=== PATIENT | male | born 1985 | race Caucasian/White ===

== ENCOUNTER 2022-10-18 01:12 | Emergency (ER) | payer SELFPAY ==
[~2022-10-18] VITALS: Ht 175.3 cm; Wt 72.6 kg
--- NOTE | 2022-10-18 01:14 | NUR ---
PT [facility] ER BED 6, ACCOMPANIED BY KATHRIN CAMPBELL
[2022-10-18 01:15] VITALS: BP 132/68
--- NOTE | 2022-10-18 02:01 | NUR ---
Dr. Cihng examining patient.
[2022-10-18] MEDS ORDERED: NACL 0.9% 1,000 ML IV ONE (02:05)
[2022-10-18 02:23] LABS: BASOPHILS # (AUTO) 0.1 K/uL (0.00-0.22); BASOPHILS % (AUTO) 0.8 % (0.0-2.0); EOSINOPHILS # (AUTO) 0.2 K/uL (0-0.4); EOSINOPHILS % (AUTO) 1.4 % (0.0-4.0); HEMATOCRIT 46.4 % (36-52); HEMOGLOBIN 15.6 g/dL (12.0-18.0); LYMPHOCYTES # (AUTO) 1.2 K/uL (2.0-11.5); LYMPHOCYTES % (AUTO) 10.1 % (20.5-51.1); MEAN CORPUSCULAR HEMOGLOBIN 32 pg (27-31); MEAN CORPUSCULAR HGB CONC 34 g/dL (33-37); MONOCYTES # (AUTO) 0.9 K/uL (0.8-1.0); MONOCYTES % (AUTO) 8.1 % (1.7-9.3); NEUTROPHILS # (AUTO) 9.3 K/uL (1.8-7.7); NEUTROPHILS % (AUTO) 79.6 % (42.2-75.2); PLATELET COUNT (AUTO) 192 K/uL (140-450); RED BLOOD CELL COUNT(AUTO) 4.89 MIL/uL (4.20-6.10); RED CELL DISTRIBUTION WIDTH 13.5 % (11.6-13.7); WHITE BLOOD COUNT (AUTO) 11.6 K/uL (4.8-10.8)
[2022-10-18 02:54] LABS: ALBUMIN 3.9 g/dL (3.4-5.0); ASPARTATE AMINOTRANSFERASE 97 U/L (15-37); CARBON DIOXIDE 27.9 mmol/L (21-32); CHLORIDE 106 mmol/L (98-107); CREATININE 0.8 mg/dL (0.6-1.3); GFR ARICAN-AMERICAN 140 mL/min (>90); GLUCOSE 107 mg/dL (74-106); POTASSIUM 3.9 mmol/L (3.5-5.1); SODIUM SERUM 144 mmol/L (136-145); TOTAL BILIRUBIN 0.6 mg/dL (0.0-1.0); UREA NITROGEN, BLOOD 9 mg/dL (7-18)
--- NOTE | 2022-10-18 03:40 | NUR ---
PT RESTING, AWAITING RESULTS. DENIES ANY PAIN AT THIS TIME. OFFICERS REMAIN AT BEDSIDE. WILL CONTINUE TO MONITOR.
[2022-10-18] MEDS ORDERED: KETOROLAC 15 MG/ML VIAL IVP ONE (03:45)
[2022-10-18 04:00] VITALS: BP 126/72
--- NOTE | 2022-10-18 04:00 | NUR ---
Patient discharged with v/s stable. Written and verbal after care instructions given and explained. Patient verbalized understanding. Police with in custody. All questions addressed prior to discharge. Advised to follow up with PMD.
== END 2022-10-18 04:00 ==
LOC: MED 01:12
DX: S30.1XXA Contusion of abdominal wall, initial encounter (principal); R07.9 Chest pain, unspecified; X58.XXXA Exposure to other specified factors, initial encounter; Y93.89 Activity, other specified; Y92.89 Other specified places as the place of occurrence of the external cause; Y99.8 Other external cause status
CPT/HCPCS: 36415; 74022; 80053; 84484; 85025; 90471; 90715; 93005; 96360; 99285; J1885; J7030; 99283